=== PATIENT | female | born 1975 | race Caucasian/White ===

== ENCOUNTER 2017-09-12 07:43 | Emergency (ER) | payer MEDICAID ==
[~2017-09-12] VITALS: Ht 165.1 cm; Wt 75.0 kg
[2017-09-12] MEDS ORDERED: MAGNESIUM/ALUMINUM HYDROXIDE/SIMETHICONE 30ML UDC PO STA (08:09)
[2017-09-12] MEDS ORDERED: SODIUM CHLORIDE 0.9% 1,000 ML IV ONE (08:09)
[2017-09-12] MEDS ORDERED: ONDANSETRON HCL 4MG/2ML VIAL IV STA (08:09)
[2017-09-12] MEDS ORDERED: FAMOTIDINE 20MG/2ML VIAL IV STA (08:09)
[2017-09-12 08:42] LABS: BASOPHILS % 0.9 % (0.0-2.0); EOSINOPHILS % 4.2 % (0.0-5.0); LYMPHOCYTES % 29.8 % (20.0-50.0); MEAN CORPUSCULAR HEMOGLOBIN 31.1 pg (28.0-32.0); MEAN CORPUSCULAR VOLUME 91.1 fL (81.0-99.0); MEAN PLATELET VOLUME 8.1 fl (7.4-10.4); MONOCYTES % 8.4 % (2.0-8.0); NEUTROPHILS % 56.7 % (40.0-76.0); PLATELET 366 x1000/uL (130-400); RED BLOOD CELL COUNT 4.17 mill/uL (4.2-5.4)
[2017-09-12 08:50] LABS: PROTHROMBIN TIME 10.1 sec (9.4-11.6)
[2017-09-12 08:56] LABS: CHLORIDE 109 mEq/L (98-107)
[2017-09-12 09:44] LABS: CLARITY URINE CLEAR (CLEAR); COLOR URINE YELLOW (YELLOW); KETONES URINE NEGATIVE (NEGATIVE); LEUKOCYTE ESTERASE URINE NEGATIVE (NEGATIVE); NITRITE URINE NEGATIVE (NEGATIVE); OCCULT BLOOD URINE NEGATIVE (NEGATIVE); PROTEIN URINE NEGATIVE (NEGATIVE); SPECIFIC GRAVITY URINE 1.007 (1.005-1.030); UROBILINOGEN URINE 0.2 E.U./dL (0.2-1.0)
[2017-09-12] MEDS ORDERED: KETOROLAC 15MG/ML VIAL IV ONE (11:00)
[2017-09-12] MEDS ORDERED: PROCHLORPERAZINE 10MG/2ML VIAL IM ONE (11:00)
[2017-09-12 12:56] VITALS: BP 99/59
== END 2017-09-12 13:04 | disposition home or self-care (01) ==
LOC: ER 07:58
DX: R55 Syncope and collapse (principal); R42 Dizziness and giddiness; R53.1 Weakness; R03.0 Elevated blood-pressure reading, without diagnosis of hypertension; R51 Headache; R11.0 Nausea
CPT/HCPCS: 36415; 80053; 81003; 81025; 82962; 83690; 85025; 85610; 93005; 96361; 96374; 96375; 99285; J0780; J2405; J3490; J7030